=== PATIENT | male | born 1930 | race Caucasian/White ===

== ENCOUNTER 2016-03-25 08:44 | Day surgery (SDC) | payer OTHER ==
[2016-03-25 07:40] VITALS: BMI 32.5
[2016-03-25 09:13] LABS: BASOPHIL 1.5 % (0-2.0); EOSINOPHIL 5.9 % (0-4.5); MCHC 31.7 g/dl (32.0-35.9); MEAN CELL VOLUME 59.1 fl (80-96); MEAN PLT VOLUME 8.3 fl (7.5-11.1); NEUTROPHILS 51.5 % (42.8-82.8); PLATELET COUNT 177 K/MM3 (134-434); RDW 16.9 % (11.9-15.9); WHITE BLOOD COUNT 5.7 K/mm3 (4.0-10.0)
[2016-03-25 09:14] LABS: MCH 18.7 pg (25.7-33.7)
[2016-03-25 09:16] LABS: INR 0.98 (0.82-1.09); PROTHROMBIN TIME (PATIENT) 10.8 SEC (9.98-11.88)
[2016-03-25 09:40] VITALS: TEMP 97.9
[2016-03-25 11:57] LABS: HYPOCHROMIA 3+; MICROCYTOSIS 3+; POLYCHROMASIA FEW
[2016-03-25 12:13] VITALS: BP 124/65; PULSE 73
--- NOTE | 2016-03-27 18:14 | PATH ---
Surgical Pathology Report Patient Name: CRISTIAN GREEN [facility]. Rec. #: [id number] /Age/Gender: 1930 (Age: 85) / M Account: [id number] Location: RADIOLOGY Taken: 03/25/2016 Received: 03/25/2016 Reported: 03/27/2016 Physicians: Ventura Servin M.D. 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 No metastatic carcinoma identified. See comment. Comment: This case was seen in consultation with hematopathology service at [place], [place] ([id number], Dr. Mackay). The diagnosis above reflect the consultation opinion. The biopsy shows diffuse lymphoid proliferation with residual germinal centers. The lymphocytes are predominantly small. Immunohistochemical stains show the following: the neoplastic lymphocytes are positive for CD20, PAX5, CD5, CD23 CD43, and BCL2 immunostains and are negative for CD3, CD10, BCL1, and BCL6. MUM1 is focally positive. Ki67 is ~5%. CAM5.2 is negative. Flow cytometry performed and interpreted in the concurrent specimen at [place], [place] ([id number]) showed a clonal B-cell population with immunophenotype consistent with Small Lymphocytic Lymphoma (SLL), 69% of total events. This clonal (cytoplasmic [place] positive) B-cell population shows moderate CD19 and CD20 expression and co-express CD5 and CD23. IgVH mutation analysis is pending; results will be reported in an addendum. The case was discussed with Dr. Servin on 03/27/16. ___ Electronically Signed Alvarado Barraza M.D. Addendum Reported: 04/01/2016 Addendum Diagnosis Hematologic FISH Report performed and interpreted at [place], [place] ([id number]) shows the following: INTERPRETATION Deletion of 13q14 is present. No evidence of trisomy 12. No evidence of a deletion of TIP (11q22) is present. No evidence of a deletion of the p53 (17p13) locus. No CCND1/IGH t(11;14) translocation is detected. Comments: The frequency of abnormalities of chromosome 13 in CLL detected by conventional cytogenetics is 10% to 15%. The presence of del (13q) as the sole abnormality in CLL is associated with a favorable prognosis. Del (13q) has also been reported in other malignancies. Suman Storey M.D. Addendum Reported: 04/02/2016 Addendum Diagnosis Molecular Pathology Report received from [facility] in [place], [place] ([id number]) shows the following: IgVH Mutation Analysis for CLL RESULTS: IgVH Mutation Status: MUTATED Mutation Rate: 7.5% Reference Range: <2%: unmutated >/= 2%: mutated IgVH Family: IGVH 4-34*01 INTERPRETATION: The IgVH mutated B-cell population detected in this sample is greater than or equal to 2% compared with the germline sequence. This is consistent with mutated IgVH, which is associated with a better prognosis. Suman Storey M.D. Gross Description Received in formalin, labeled "left axilla lymph node" are 4 wallace, cylindrical portions of soft tissue ranging from 0.4-1.3 cm in length and averaging 0.1 cm in diameter. The specimens are submitted in toto in one cassette. 03/25/201603/25/2016
== END 2016-03-25 12:10 | disposition home or self-care (01) ==
LOC: JRADIR 08:44
PROVIDERS: ATTEND Internal Medicine Hematology & Oncology
PROC: BH4BZZZ Ultrasonography of Chest Wall (ICD-10-PCS; principal; 2016-03-25)
PROC: 07B63ZX Excision of Left Axillary Lymphatic, Percutaneous Approach, Diagnostic (ICD-10-PCS; 2016-03-25)
DX: C91.10 Chronic lymphocytic leukemia of B-cell type not having achieved remission (principal); Z85.038 Personal history of other malignant neoplasm of large intestine; Z85.46 Personal history of malignant neoplasm of prostate; Z85.51 Personal history of malignant neoplasm of bladder
CPT/HCPCS: 36415; 76942-TC; 85025; 85610; 87899; 88305-TC

== ENCOUNTER 2016-10-14 06:49 | Day surgery (SDC) | payer OTHER ==
[2016-10-13 10:59] VITALS: BMI 32.3
[2016-10-14] MEDS ORDERED: LIDOCAINE HCL/PF 2% SDV 5ML VIAL ONE (07:51)
[2016-10-14] MEDS ORDERED: PROPOFOL 20 ML ONE ×3 (07:52)
[2016-10-14 08:38] VITALS: TEMP 97.7
[2016-10-14 08:49] VITALS: PULSE 65
[2016-10-14 09:35] VITALS: BP 156/71
--- NOTE | 2016-10-15 13:24 | PATH ---
Surgical Pathology Report Patient Name: CRISTIAN GREEN [facility]. Rec. #: [id number] /Age/Gender: 1930 (Age: 85) / M Account: [id number] Location: U-ENDOSCOPY Taken: 10/14/2016 Received: 10/14/2016 Reported: 10/15/2016 Physicians: Tirso Petit M.D. Specimen(s) Received A: TRANSVERSE COLON POLYP B: RECTOSIGMOID COLON POLYP Clinical History Surveillance Diverticulosis; colonic polyps, anastomosis site Final Diagnosis A. COLON, TRANSVERSE, POLYP, POLYPECTOMY: SERRATED ADENOMA. B. COLON, RECTOSIGMOID, POLYP, POLYPECTOMY: TUBULAR ADENOMA. Electronically Signed Alvarado Barraza M.D. Gross Description A. Received in formalin, labeled "cold snared transverse colon polyp" are 2 wallace, irregular portions of soft tissue measuring 0.1-0.2 cm in greatest dimension. The specimens are submitted in toto in one cassette. B. Received in formalin, labeled "cold snare rectosigmoid colon polyp" is a wallace, irregular portion of soft tissue measuring 0.2 cm in greatest dimension. The specimen is submitted in toto in one cassette. [facility]/10/14/2016 [facility]/10/14/2016
== END 2016-10-14 09:35 | disposition home or self-care (01) ==
LOC: JASU-ENDO 06:49
PROVIDERS: ATTEND Internal Medicine Gastroenterology
PROC: 0DBN8ZX Excision of Sigmoid Colon, Via Natural or Artificial Opening Endoscopic, Diagnostic (ICD-10-PCS; 2016-10-14)
PROC: 0DBL8ZX Excision of Transverse Colon, Via Natural or Artificial Opening Endoscopic, Diagnostic (ICD-10-PCS; principal; 2016-10-14 08:00)
DX: Z51.11 Encounter for antineoplastic chemotherapy (principal); Z85.038 Personal history of other malignant neoplasm of large intestine; Z86.010 Personal history of colon polyps; K57.30 Diverticulosis of large intestine without perforation or abscess without bleeding; D12.3 Benign neoplasm of transverse colon; D12.7 Benign neoplasm of rectosigmoid junction
CPT/HCPCS: 88305-TC